=== PATIENT | female | born 1940 | race Caucasian/White ===

== ENCOUNTER → 2016-06-29 | Day surgery (SDC) | payer MEDICARE, OTHER ==
[~2016-06-29] MED LIST: BUPIVACAINE/EPINEPHRINE 0.25% PF 30 ML VIAL ONE; ISOSULFAN BLUE 50 MG/5 ML VIAL SQ ONE; KETOROLAC TROMETHAMINE 30 MG/ML (IVP) VIAL IV PUSH ONE; LACTATED RINGER'S 1000 ML INJ 1,000 ML ONE; LIDOCAINE 1%/EPINEPHrine 1:100,000 SOLN 20 ML VIAL ONE; LORT5TAB PO; MIDAZOLAM HCL 2 MG/2 ML VIAL ONE; ONDANSETRON HCL 4 MG/2 ML VIAL IV PUSH ONE; PROPOFOL 100 MG/10 ML INJ IV ONE; ROSU5 PO; VANCOMYCIN HCL 1000 MG VIAL ONE
--- NOTE | 2016-06-29 19:13 | TN ---
cc: CAMILO WHITEHEAD MD, JOSEPH D. M.D. DATE OF SURGERY: 07/01/2016 PREOPERATIVE DIAGNOSIS Right-sided breast cancer 6 o'clock position. POSTOPERATIVE DIAGNOSIS Right-sided breast cancer 6 o'clock position, pending permanent section. PROCEDURE 1. Injection of Lymphazurin blue dye for lymphatic mapping to identify sentinel nodes in the right axillary region. 2. Needle localized excisional quadrantectomy right breast to obtain clear margins for breast malignancy. ANESTHESIA General. SURGEON Dr. Truong. INDICATION This is a pleasant 75-year-old female who was found to have a right-sided breast cancer, it was somewhat small, she had seen Dr. Whitehead in preoperative radiation therapy, plans were made for breast conservation. PROCEDURE The patient was taken to the operating room and placed in the position, after anesthesia we do a timeout, 6 cc of Lymphazurin blue dye was injected into the needle track fede. The radiologist placed a guidewire in, it is coursing from approximately the 4 o'clock position to the 6 o'clock about 3 cm from the nipple-areolar complex. We obtain a good hot spot in the right axillary region. After injecting the Lymphazurin blue dye, we then prepped with Betadine and make a curvilinear incision in the axillary space identifying two sentinel nodes that are not blue but are just simply hot, the first one with an ex vivo count of 1720 and the second one with 402 ex vivo count. No other hot spots were noted, no other blue nodes were noted, no other lymphadenopathy is noted, she is rather thin in the axillary region. We then irrigate. Hemostasis assured. We close the deep layer with 3-0 Vicryl and the skin with 4-0 Vicryl. We then direct our attention to the guidewire. A curvilinear incision is made in the nipple-areolar complex about 3 cm above the guidewire. We dissect down to the skin to the guidewire and cut the guidewire off at the skin level, we are then able to grasp the guidewire. using the lighted retractors we are able to get circumferential dissection around the breast tissue, do a quadrantectomy of the lower quadrant of the breast. This specimen is marked with a short stitch superiorly and a long stitch placed laterally, sent down to radiology where imaging reveals the area in question had been removed with the clip and the guidewire. We then irrigate, hemostasis assured. We close the deep layer with 3-0 Vicryl and the skin was closed with a 4-0 Vicryl. Steri-Strips applied. Sterile bandage applied. The patient tolerated the procedure well and had no immediate postop complications. MD ROSALES Holliday/ARCHANA /5:53 PM /6:32 PM STEPHEN
== END | disposition home or self-care (01) ==
LOC: ESDC 06:14
PROVIDERS: ATTEND Surgery
DX: C50.811 Malignant neoplasm of overlapping sites of right female breast (principal)
CPT/HCPCS: 00400; 01610; 19125; 38525; 38792; 88307; J1885; J2250; J2405; J3010; J3370; J7120; Q9968